=== PATIENT | male | born 1970 | race Caucasian/White ===

== ENCOUNTER 2017-11-13 13:44 | Inpatient (IN) | payer OTHER ==
[~2017-11-13] VITALS: Ht 180.3 cm; Wt 62.1 kg
--- NOTE | 2017-11-13 14:23 | NUR ---
PRE-ASSESSMENT NOTE: PT WAS ASSESSED IN INTAKE OFFICE, PT IS IN STABLE CONDITION, PT'S LAST DRINK WAS YESTERDAY, PT VERBALIZES HE DRINKS 300-500 ML DAILY X 1 MONTH. APPEARS ANXIOUS AND RESTLESS. WITH DISHEVELED APPEARANCE. PT IS THE MAIN SOURCES OF INFORMATION AND IS MODERATELY WITHDRAWING AT THIS TIME.
[2017-11-13 14:30] VITALS: BP 130/82
--- NOTE | 2017-11-13 14:42 | NUR ---
ADMISSION NOTE ALLERGY-NKA STATUS-FULL CODE HEIGHT-5'11 WEIGHT-137LBS PCP- DR. Persaud last seen was 2 months ago [facility]-10 Patient is 46 year old male admitted at 1442 PM for supervised ETOH(VODKA) withdrawal. Patient is alert and oriented X4, full code, with NKA. On fall and seizure precaution, patient denies any history of seizure, denies SOB, chest pain. Upon arrival skin assessment done and skin noted intact. Patient reports history of anxiety, depression, and he is taking Seroquel and Zoloft. Per patient last used Seroquel last night 11/12/17 and Zoloft was 11/13/17. Patient is able to respond to questions, cooperative during the admission interview but patient has avoidant eye contact, anxious, agitated, worried, has dirty finger nails, and has an odor. Denies suicidal or homicidal ideation at this time. Patient states family history of alcohol use. Patient refused PNA vaccine. Patient reports for past two months " I was living in a hotel because my doesn't want to be around me since I keep drinking." Patient reports history of vasotomy. Patient reports that common withdrawal symptoms include ,anxiety, restless, N/V, shakes and tremors. Patient denies any history of overdose. Patient states that he has been seeking treatment because it is affecting his health. Pt reports he uses ETOH to cope with stress. Patient states he is going through a divorce due to his drinking and his gave him 6 months to get sober and the last 4 months were the trigger point that caused him to want to use. He states he has 2 months left to get sober and is highly motivated to gain sobriety. Patient states he was in [facility] treatment in August 2017, patient unable to recall the exact name of the treatment center; will cont to ask. Patient also reports in 2011 he was in [facility] detox in [place]. Patient states his longest period of sobriety was 1.5 years which was in 2011 to September 2013. Patient reported there is no specific trigger. Patient states that he is ready to focus on recovery and is open to 12 steps program. Substance use history per patient report: 1) ETOH(VODKA) - Patient reports last drink of Vodka was yesterday 11/12/17 PO 375ML. Patient states he has been drinking 300ml to 500ML daily for past 1 month. Patient reports he started using at age of 15. Patient also reports he was in able to change and stayed there for 30 days right after he discharge he relapses. Educated patient about plan of care including detox, group therapy and discharge planning. Encourage patient to be open honest and verbalized support for patient in his recovery. Encourage patient to notify staff with any concerns. Patient was oriented to unit, room and call lights, oriented to unit routines and activity groups, and provided with hygiene supplies. Patient has been educated about plan of care and case management, as well as unit protocols. Safety measures in place, side rails up x2 bed locked in low position, call light within reach. Will cont to monitor.
[2017-11-13] MEDS ORDERED: IBUPROFEN 600 MG TABLET PO PRN (14:45)
[2017-11-13] MEDS ORDERED: ONDANSETRON ODT 4 MG TAB.RAPDIS SL PRN (14:45)
[2017-11-13] MEDS ORDERED: LOPERAMIDE HCL 2 MG CAPSULE PO PRN ×2 (14:45)
[2017-11-13] MEDS ORDERED: LORAZEPAM 1 MG TABLET PO PRN ×2 (14:45)
[2017-11-13] MEDS ORDERED: diphenhydrAMINE 50 MG CAPSULE PO PRN (14:45)
[2017-11-13] MEDS ORDERED: MAGNESIUM HYDROXIDE 30 ML LIQUID UDC PO PRN (14:45)
[2017-11-13] MEDS ORDERED: MAG HYDROX/AL HYDROX/SIMETH 30 ML LIQUID UDC PO PRN (14:45)
[2017-11-13] MEDS ORDERED: ACETAMINOPHEN 325 MG TABLET PO PRN (14:45)
[2017-11-13] MEDS ORDERED: LORAZEPAM 2 MG/1 ML VIAL IM PRN (14:45)
[2017-11-13] MEDS ORDERED: THIAMINE HCL 200 MG/2 ML VIAL IM ONE (14:45)
[2017-11-13] MEDS ORDERED: 5 DAY TAPER VALIUM-SERENITY PROTOCOL PO PRN (14:45)
[2017-11-13] MEDS ORDERED: ONDANSETRON 4 MG/2 ML VIAL IM PRN (14:45)
[2017-11-13 15:14] LABS: *AMPHETAMINE, URINE NEGATIVE (NEGATIVE); *BARBITURATE, URINE NEGATIVE (NEGATIVE); *CANNABINOID, URINE NEGATIVE (NEGATIVE); *COCCAINE, URINE NEGATIVE (NEGATIVE); *OPIATE, URINE NEGATIVE (NEGATIVE); *PHENCYCLIDINE SCREEN,URINE NEGATIVE (NEGATIVE)
[2017-11-13 15:31] LABS: BASOPHILS % (AUTO) 0.4 % (0.0-2.0); EOSINOPHILS % (AUTO) 0.5 % (0.0-7.0); HEMATOCRIT 43.6 % (36.7-47.1); LYMPHOCYTES # (AUTO) 0.5 K/uL (20.0-40.0); LYMPHOCYTES % (AUTO) 9.8 % (20.5-51.5); MEAN CORPUSCULAR HGB CONC 34 g/dL (32.5-36.3); MEAN CORPUSCULAR VOLUME 93.3 fL (73.0-96.2); MONOCYTES # (AUTO) 0.5 K/uL (2.0-10.0); MONOCYTES % (AUTO) 9.7 % (0.0-11.0); NEUTROPHILS # (AUTO) 4.4 K/uL (1.8-8.9); NEUTROPHILS % (AUTO) 79.6 % (38.5-71.5); PLATELET COUNT (AUTO) 164 K/uL (152-348); RED BLOOD CELL COUNT(AUTO) 4.68 MIL/uL (4.06-5.63); WHITE BLOOD COUNT (AUTO) 5.6 K/uL (3.6-10.2)
[2017-11-13 15:41] LABS: ETHANOL < 3 MG/DL (0-0)
[2017-11-13 15:50] LABS: ALANINE AMINOTRANSFERASE 201 U/L (16-63); ALKALINE PHOSPHATASE 88 U/L (50-136); ASPARTATE AMINOTRANSFERASE 410 U/L (15-37); BILIRUBIN,TOTAL 0.9 mg/dL (0.2-1.0); CARBON DIOXIDE 32 mmol/L (21-32); CHLORIDE 93 mmol/L (98-107); CREATININE 1.3 mg/dL (0.6-1.3); GLUCOSE 146 mg/dL (74-106); MAGNESIUM 1.7 mg/dL (1.8-2.4); POTASSIUM 3.4 mmol/L (3.5-5.1); TOTAL PROTEIN, SERUM 7.2 g/dL (6.4-8.2); UREA NITROGEN, BLOOD 8 mg/dL (7-18)
[2017-11-13 16:00] VITALS: BP 134/95
--- NOTE | 2017-11-13 16:00 | NUR ---
CIWA ASSESSMENT Patient is alert labile facial expression, poor eye contact continues to exhibits s/s of withdrawal such as nausea, sweats, bilateral hand tremors, anxiety, agitation, restless, light headed, CIWA score noted 14. Will cont to monitor.
[2017-11-13] MEDS: DIAZEPAM 10 MG TABLET PO SCH ×2 (16:10→21:13)
[2017-11-13] MEDS ORDERED: NALT50TA PO (16:51)
[2017-11-13] MEDS ORDERED: ALBU18HF2 INH (16:51)
[2017-11-13] MEDS ORDERED: ASCO500W7 PO (16:51)
[2017-11-13] MEDS ORDERED: KETO15CR2 TP (16:51)
[2017-11-13] MEDS ORDERED: QUET50TA PO (16:51)
[2017-11-13] MEDS ORDERED: CHOL500062 PO (16:51)
[2017-11-13] MEDS ORDERED: MULT1TAB73 PO (16:51)
[2017-11-13] MEDS ORDERED: SERT50TA PO (16:51)
[2017-11-13] MEDS ORDERED: VITA-287 PO (16:51)
[2017-11-13] MEDS ORDERED: GABA-534 PO (16:51)
[2017-11-13] MEDS ORDERED: POTASSIUM CHLORIDE 20 MEQ TAB.PRT.SR PO ONE (18:15)
[2017-11-13] MEDS ORDERED: MAGNESIUM OXIDE 400 MG TABLET PO ONE (18:15)
--- NOTE | 2017-11-13 18:29 | NUR ---
POTASSIUM AND MAGNESIUM REPLACED Patient labs results came and noted with Potassium 3.4L and Magnesium 1.7L. MD notified. New order to give K-DUR 20MG PO and Mag-OX 800mg PO medications were given as ordered, patient tolerated well.
--- NOTE | 2017-11-13 19:17 | NUR ---
END OF SHIFT NOTE Gave report to night nurse 46 year old male admitted for ETOH withdrawal and patient started on Valium taper first scheduled dose was given at 1600 CIWA score was 14. Patient reported PMH of anxiety, depression and taking Seroquel 50mg PO and Zoloft 150 PO daily. Patient presented with anxiety, agitation, restless, diaphoresis, light headed. Patient is currently very restless and wanted to rest at this time. Encouraged PO fluids as tolerated. All safety measures in place, call light within reach. Patient endorse to night nurse in stable condition.
--- NOTE | 2017-11-13 19:30 | NUR ---
START OF SHIFT PT IS A 46 MALE ADMITTED TODAY FOR ETOH WITHDRAWAL.PT HAS BEEN STARTED ON A 5 DAY VALIUM TAPER AND IS TOLERATING WELL.PT A/O X 4, RECEIVED LYING IN BED,C/O FEELING ANXIOUS AND RESTLESS WITH GENERALIZED BODY ACHE. PO FLUIDS ENCOURAGED.LAST CIWA=14. ALL SAFETY MEASURES ARE IN PLACE,SIDE RAILS UPX2 , BED IS IN LOWEST POSITION. CALL LIGHT WITHIN REACH. WILL CONTINUE TO MONITOR.
[2017-11-13 20:00] VITALS: BP 130/80
[2017-11-13] MEDS ORDERED: QUETIAPINE FUMARATE 25 MG TABLET PO ONE (21:30)
--- NOTE | 2017-11-13 21:30 | NUR ---
COMMUNICATION / ONE TIME ORDER. PT STATED THAT HE TAKES SEROQUEL 50 MG TABLET EVERY NIGHT TO HELP HIM SLEEP.DR VILLALOBOS NOTIFIED.ONE TIME ORDER OF SEROQUEL 50 MG PO NOTED AND CARRIED OUT.
--- NOTE | 2017-11-13 21:47 | NUR ---
PRN SEROQUEL GIVEN ORDERED FOR C/O INSOMNIA.WILL MONITOR FOR EFFECTIVENESS.
--- NOTE | 2017-11-13 22:45 | NUR ---
PRN REASSESSMENT. PRN SEROQUEL IS EFFECTIVE.PT IS RESTING IN BED WITH EYES CLOSED.BREATHING IS EVEN AND NON LABORED.NO S/S OF DISTRESS NOTED.WILL CONTINUE TO MONITOR.
[2017-11-14] VITALS: BP 117/79
[2017-11-14 04:00] VITALS: BP 112/76
--- NOTE | 2017-11-14 04:00 | NUR ---
CIWA DEFERRED PT IS RESTING IN BED WITH EYES CLOSED.BREATHING IS EVEN AND NON LABORED.V/S ARE STABLE.NO S/S OF DISTRESS NOTED.CIWA DEFERRED D/T PT BEING ASLEEP.WILL CONTINUE TO MONITOR.
--- NOTE | 2017-11-14 06:45 | NUR ---
END OF SHIFT PT IS A 46 MALE ADMITTED TODAY FOR ETOH WITHDRAWAL.PT CONTINUES ON A 5 DAY VALIUM TAPER AND IS TOLERATING WELL.PT IS A/O X 4, RECEIVED ONE TIME ORDER OF SEROQUEL 50 MG PO X 1 AND IT WAS EFFECTIVE.PT SLEPT 8 HRS,FLUID INTAKE WAS 1355 MLS,VOIDED X 2 .PO FLUIDS ENCOURAGED.LAST CIWA=7 AT MID NIGHT. ALL SAFETY MEASURES ARE IN PLACE,SIDE RAILS UPX2 , BED IS IN LOWEST POSITION. CALL LIGHT WITHIN REACH. WILL CONTINUE TO MONITOR.
[2017-11-14 08:00] VITALS: BP 120/87
--- NOTE | 2017-11-14 08:00 | NUR ---
CIWA ASSESSMENT Patient appears suspicious, labile facial expression, unkempt room, dirty finger nails and continues to exhibit s/s of withdrawal such as bilateral hand tremors, sweats, chills, stuffy nose, difficulty sitting still, yawning, anxiety, restless, agitation, light headed, CIWA score -13. Will cont to monitor.
--- NOTE | 2017-11-14 08:00 | NUR ---
START OF SHIFT NOTE Received report from night nurse 46 year old male admitted for ETOH withdrawal. Patient continues with his Valium taper tolerating well. Per endorsement patient received PRN Seroquel effective per night nurse, last CIWA 7, slept for 8 hours. Received patient alert awake oriented x4, bilateral hand tremors noted, sweats, chills, anxious, restless, unkempt room, sad facial expression, Skin intact warm and dry to touch. Educated patient with plan of care and medication regimen with good verbal understanding. All safety measures in place,call light within reach. Will continues to monitor.
[2017-11-14] MEDS: THIAMINE HCL 100 MG TABLET PO SCH (08:24)
[2017-11-14] MEDS: MULTIVITAMINS,THERAPEUTIC TABLET PO SCH (08:24)
[2017-11-14] MEDS: DIAZEPAM 10 MG TABLET PO SCH ×3 (08:24→21:31)
[2017-11-14] MEDS: FOLIC ACID 1 MG TABLET PO SCH (08:24)
[2017-11-14] MEDS ORDERED: TUBERCULIN,PURIF.PROT.DERIV. 5 TU/0.1 ML TEST ID ONE (09:00)
[2017-11-14] MEDS: SERTRALINE HCL 50 MG TABLET PO SCH (10:12)
[2017-11-14 12:00] VITALS: BP 111/86
[2017-11-14] MEDS ORDERED: KETOCONAZOLE 2% CREAM 30 GM TUBE TP SCH (12:00)
[2017-11-14] MEDS ORDERED: Medication Not On Formulary EA (Multivitamins (Multivitamin) 1 TAB) PO SCH (12:00)
[2017-11-14] MEDS ORDERED: ALBUTEROL SULFATE 8 GM HFA.AER.AD INH PRN (12:00)
--- NOTE | 2017-11-14 12:00 | NUR ---
CIWA ASSESSMENT Patient appears very tired, labile facial expression, dirty finger nails and continues to exhibit s/s of withdrawal such as bilateral hand tremors, numbness on bilateral hands sweats, chills, anxiety, restless, agitation, light headed, CIWA score -15. Will cont to monitor.
[2017-11-14] MEDS ORDERED: ALBUTEROL SULFATE 2.5 MG/3 ML NEBU NEB PRN (12:15)
[2017-11-14] MEDS: GABAPENTIN 300 MG CAPSULE PO SCH ×2 (13:11→16:45)
[2017-11-14 16:00] VITALS: BP 114/83
--- NOTE | 2017-11-14 16:00 | NUR ---
CIWA ASSESSMENT Patient is alert oriented, and continues to exhibit s/s of withdrawal such as bilateral hand tremors, numbness on bilateral hands sweats, and patient reported increased in anxiety, restless, agitation, light headed, CIWA score -16. Will cont to monitor.
[2017-11-14 16:43] LABS: BILIRUBIN,TOTAL 0.5 mg/dL (0.2-1.0); CREATININE 1.1 mg/dL (0.6-1.3); POTASSIUM 3.3 mmol/L (3.5-5.1); TOTAL PROTEIN, SERUM 6.1 g/dL (6.4-8.2)
--- NOTE | 2017-11-14 19:06 | NUR ---
END OF SHIFT NOTE Gave report to night nurse, 46 year old male admitted for ETOH withdrawal. Patient continues with Valium taper tolerating well. Patient presented with anxiety, agitation, restless, light headed, numbness on bilateral hands, sweats, bilateral hand tremors. Patient was given scheduled medications. Patient rested in his room most of the shift, encourage patient to attend groups activities to learn new coping skills, patient verbalized understanding. Encourage PO fluids as tolerated. Patient was seen by psychiatric with new order to give Zoloft 50mg PO medication was administered as ordered patient tolerated well. All safety measures in place, call light within reach. Patient endorse to night nurse in stable condition.
--- NOTE | 2017-11-14 19:40 | NUR ---
Start of Shift Notes Received a 46 y/o male px, admitted for medically supervised withdrawal from ETOH. Px was placed on 5 day Valium taper started on 11/13/2017. Px is tolerating it. Last reported CIWA by AM shift nurse at 1600 is 16. During the rounds at 1940, Px appears disheveled, unkempt, unshaven, odorous with dirty finger nails. Px is withdrawn. Px has good eye contact. Px stated My anxiety is 2/10. I see double vision on the TV but I am wearing my contact lenses. It bothers me a little. It started 2 days ago. Bilateral hand tremors noted. Bed on lowest position, side rails up x1 on the left side, and call light within reach. Well continue to monitor.
[2017-11-14 20:00] VITALS: BP 118/82
--- NOTE | 2017-11-14 20:00 | NUR ---
CIWA 14 Px appears anxious, withdrawn, with good eye contact. Bilateral hand tremors noted. He has Visual hallucinations that started 2 days ago. H/A is absent but has sweats at night.
[2017-11-14] MEDS ORDERED: POTASSIUM CHLORIDE 20 MEQ TAB.PRT.SR PO ONE (21:00)
[2017-11-14] MEDS: QUETIAPINE FUMARATE 25 MG TABLET PO SCH (21:31)
[2017-11-15] VITALS: BP 111/77
--- NOTE | 2017-11-15 | NUR ---
CIWA deferred CIWA deferred due to the px is asleep, to assess if the px is awake per doctor's order. We'll continue to monitor.
[2017-11-15 04:00] VITALS: BP 116/70
--- NOTE | 2017-11-15 04:00 | NUR ---
CIWA deferred CIWA deferred due to the px is asleep, to assess if the px is awake per doctor's order. We'll continue to monitor.
--- NOTE | 2017-11-15 07:10 | NUR ---
End of Shift Notes During the shift, px didnt received any PRN medication. Px oral intake is 1200 ml, voided 3x, without BM. Px slept for 8 hours. At 0630, px is asleep on bed in left side lying position. Last CIWA 14. Bed on lowest position, side rails up x2, and call light within reach. Well continue to monitor. Px endorsed to AM shift nurse.
[2017-11-15 08:00] VITALS: BP 102/71
--- NOTE | 2017-11-15 08:20 | NUR ---
START OF SHIFT: Received Pt A/O X 4. He presents with blunted affect and depressed mood. He denies S/I and H/I. He is tremulous with flushed complexion. He is disheveled and his finger nails are dirty. He reports anxiety , sensitivity to light with occasional blurred vision and restlessness. Pt states he stays in his room and does not attend groups.CIWA 12. Valium taper in progress to manage s/s of w/d. Encouraged group attendance to improve coping skills and prevent relapse. Encouraged increased fluids to promote wellness. Encouraged a shower for good hygiene. Will continue to monitor and manage s/s of w/d.
[2017-11-15] MEDS: FOLIC ACID 1 MG TABLET PO SCH (09:13)
[2017-11-15] MEDS: GABAPENTIN 300 MG CAPSULE PO SCH ×3 (09:13→16:18)
[2017-11-15] MEDS: THIAMINE HCL 100 MG TABLET PO SCH (09:14)
[2017-11-15] MEDS: MULTIVITAMINS,THERAPEUTIC TABLET PO SCH (09:14)
[2017-11-15] MEDS: DIAZEPAM 5 MG TABLET PO SCH ×4 (09:14→21:36)
[2017-11-15] MEDS: SERTRALINE HCL 50 MG TABLET PO SCH (09:14)
[2017-11-15 12:00] VITALS: BP 113/80
[2017-11-15 16:00] VITALS: BP 111/80
--- NOTE | 2017-11-15 18:47 | NUR ---
END OF SHIFT: Pt continues on Valium taper to manage s/s of w/d which include tremors,sweats,anxiety and restlessness. Last CIWA 13. He is disheveled and odorous. He isolated in bed all of shift and did not attend groups. He states he wanted to catch up on his sleep. Will pass shift report to oncoming night nurse.
[2017-11-15 20:00] VITALS: BP 111/77
--- NOTE | 2017-11-15 20:00 | NUR ---
322 Start of Shift Notes Received a 46 y/o male px, admitted for medically supervised withdrawal from ETOH. Px was placed on 5 day Valium taper started on 11/13/2017. Px is tolerating it. Last reported CIWA by AM shift nurse at 1600 is 13. During the rounds at 2000, Px still appears disheveled, unkempt, unshaven, odorous with dirty finger nails. Px is withdrawn. Px has good eye contact. Px stated that his anxiety is mild and he has mild H/A. Bilateral hand tremors noted. Px was encouraged to take a shower. Px replied that he will take it tomorrow. Bed on lowest position, side rails up x1 on the left side, and call light within reach. Well continue to monitor.
--- NOTE | 2017-11-15 20:00 | NUR ---
CIWA 12 Px appears anxious, withdrawn, with good eye contact. Bilateral hand tremors noted. He has Visual hallucinations that started 3 days ago. H/A is mild.
[2017-11-15] MEDS ORDERED: SERTRALINE HCL 100 MG TABLET PO SCH (21:00)
[2017-11-15] MEDS: QUETIAPINE FUMARATE 25 MG TABLET PO SCH (21:37)
--- NOTE | 2017-11-15 21:37 | NUR ---
PRN Tylenol Px received Tylenol 325 mg/tab, 2 tabs given PO for H/A of 07/08. Will reassess after an hour
--- NOTE | 2017-11-15 22:37 | NUR ---
CIWA 11 Reassessment of CIWA after Valium 5 mg PO. Px still appears anxious, withdrawn, with good eye contact. Bilateral hand tremors noted. He has Visual hallucinations that started 3 days ago.
--- NOTE | 2017-11-15 22:40 | NUR ---
Reassessment of H/A Px stated "My H/A is gone."
[2017-11-16] VITALS: BP 115/78
--- NOTE | 2017-11-16 | NUR ---
CIWA deferred CIWA deferred due to the px is asleep, to assess if the px is awake per doctor's order. We'll continue to monitor.
[2017-11-16 04:00] VITALS: BP 112/77
--- NOTE | 2017-11-16 04:00 | NUR ---
CIWA deferred CIWA deferred due to the px is asleep, to assess if the px is awake per doctor's order. We'll continue to monitor.
--- NOTE | 2017-11-16 07:10 | NUR ---
End of Shift Notes During the shift at 2137, px received Tylenol 650 mg PO for H/A. It was effective. Px oral intake 1 L, voided x2, without BM. Px slept for 8 hours. At 0630, px is asleep on bed in right side lying position. Last CIWA 11. Bed on lowest position, side rails up x1 on the left side, and call light within reach. Well continue to monitor. Px endorsed to AM shift nurse.
[2017-11-16 08:00] VITALS: BP 106/77
--- NOTE | 2017-11-16 08:18 | NUR ---
START OF SHIFT: Received Pt A/O X 4. He presents with blunted affect and depressed mood. He denies S/I and H/I. Fine tremors noted.His complexion is flushed. He is disheveled with dirty fingernails. He is odorous. He reports anxiety , sensitivity to light and restlessness. Pt states he stays in his room and does not attend groups.CIWA 12. Valium taper in progress to manage s/s of w/d. Encouraged group attendance to improve coping skills and prevent relapse. Encouraged increased fluids to promote wellness. Strongly encouraged a shower for good hygiene. Will continue to monitor and manage s/s of w/d.
[2017-11-16] MEDS ORDERED: SERTRALINE HCL 50 MG TABLET PO SCH (09:00)
[2017-11-16] MEDS: MULTIVITAMINS,THERAPEUTIC TABLET PO SCH (09:07)
[2017-11-16] MEDS: GABAPENTIN 300 MG CAPSULE PO SCH ×3 (09:07→16:49)
[2017-11-16] MEDS: THIAMINE HCL 100 MG TABLET PO SCH (09:07)
[2017-11-16] MEDS: FOLIC ACID 1 MG TABLET PO SCH (09:07)
[2017-11-16] MEDS: DIAZEPAM 5 MG TABLET PO SCH ×3 (09:08→21:11)
--- NOTE | 2017-11-16 09:56 | NUR ---
Pt showered. Linens changed.
--- NOTE | 2017-11-16 11:05 | NUR ---
Endorsed Pt to staff nurse. All pertinent information discussed for continuity of care.
[2017-11-16 12:00] VITALS: BP 109/76
--- NOTE | 2017-11-16 12:00 | NUR ---
CIWA Assessment CIWA of 11. Pt. presents with anxiety, restlessness, and fine hand tremors. Pt. medication compliant at this time. No behavior issues.
[2017-11-16] MEDS: SERTRALINE HCL 100 MG TABLET PO SCH (14:31)
[2017-11-16 16:00] VITALS: BP 126/84
--- NOTE | 2017-11-16 16:00 | NUR ---
CIWA Assessment CIWA of 11. Pt. presents with anxiety, restlessness, and fine hand tremors. Pt. medication compliant at this time. No behavior issues. Will continue to monitor pt.'s behavior for safety.
--- NOTE | 2017-11-16 19:23 | NUR ---
End of Shift Note Pt. is a 46 y/o male admitted for the medically managed withdrawal from ETOH. Pt. was placed on a 5 day valium taper to managed withdrawal symptoms. Pt. compliant with treatment plan and medication administration. During shift pt. was disheveled, malodorous (even after showering) isolative and withdrawn preferring to stay in his room. Pt. was prompted to shower and maintained a hygienic person and personal space. Pt. continually presented with anxiety, restlessness and fine hand tremors during shift. No PRN's given during shift. Last CIWA of 11 at 1600. Safety measures in place. Pt.'s care endorse to oncoming shift.
--- NOTE | 2017-11-16 19:30 | NUR ---
Start of Shift Pt admitted 11/13/17 for medically managed withdrawal from ETOH. Pt is listed as a full code with NKAs and on a regular diet. Pt assessed in room, presents as depressed/sad/worried, anxious, hyperactive and fidgety. Pt cooperative, oriented x 4, denies any pain or H/A, N/V/D, Stomach cramping present. Pt is obviously moist, hands tremulous, gait hesitant but steady. Pt also hypervigilant and restless, but cooperative, oriented x 4. Pt Full safety measures remain in place, including fall/seizure. Will continue to monitor for duration of shift and promptly attend to all s/sxs distress or w/d.
[2017-11-16 20:00] VITALS: BP 124/89
--- NOTE | 2017-11-16 20:00 | NUR ---
CIWA 2000 CIWA score of 11, aeb stomach cramping, tremors, sweats and diaphoresis, anxiety and agitation/restlessness/hypervigilance.
[2017-11-16] MEDS: QUETIAPINE FUMARATE 25 MG TABLET PO SCH (21:11)
[2017-11-17] VITALS: BP 107/67
--- NOTE | 2017-11-17 | NUR ---
Midnight rounds 0000 VS's obtained, CIWA deferred due to pt somnalance. RR 16, BP 107/67, SaO2 96%. Will continue to monitor and promptly attend to all s/sx's distress or w/d.
[2017-11-17 04:00] VITALS: BP 94/59
--- NOTE | 2017-11-17 04:00 | NUR ---
0400 CIWA VS's obtained/stable. CIWA 7, AEB hand tremors, sweats and diaphonesis, anxiety and agitation/restlessness and hypervigilance.
--- NOTE | 2017-11-17 07:43 | NUR ---
End of Shift Endorsement given to day nurse. Pt admitted 11/13/17 for medically managed withdrawal from ETOH starting day 5 of a 5 day Valium taper today. Pt receiveived no PRNs for shift, with Seroquel and Valium being evening meds. Pt with flat affect, worried/depressed with loose thoughts, cooperative, able to perform ADLs, but low self-esteem persists (Hx of 2 prior Txs, last 4 months ago). VSs stable except HR tachy( consistent with stay) coming down to 100 with 0400 VSs. Last CIWA 7 at 0400. Pt slept for 7 hours with 1092 mls intake and 2 voids . Full safety measures remain in place, with bed locked and in lowest position, siderails up x 2, call mireles within reach and frequent rounding.
--- NOTE | 2017-11-17 07:51 | NUR ---
Start of Shift Notes: Received patient in his room. Alert and oriented x 4. Denies S/I or H/I noted. No AV hallucinations noted. Appears disheveled, unshaven, red eyes, tremulous and diaphoretic. He is noted to be anxious to go smoke. He states "I need to go smoke, I only have half a pack of cigarettes left." Upon looking at patient's bedside. He was seen to have 2 half a pack of cigarettes. He was educated on the smoking policies with help. Patient is a 46 year old male admitted for ETOH withdrawal who was placed on a 5-day Valium taper as ordered. No adverse reactions noted. Educated patient on his current plan of care for the day and his medication regimen. Encouraged oral fluid intake and encouraged group participation to learn new skills to prevent relapse. Per night report, patient slept for 7 hours. Last CIWA 7 at 0400. All needs met and attended. Will continue to monitor closely.
[2017-11-17 08:00] VITALS: BP 105/77
[2017-11-17] MEDS: FOLIC ACID 1 MG TABLET PO SCH (08:17)
[2017-11-17] MEDS: MULTIVITAMINS,THERAPEUTIC TABLET PO SCH (08:17)
[2017-11-17] MEDS: SERTRALINE HCL 100 MG TABLET PO SCH (08:17)
[2017-11-17] MEDS: GABAPENTIN 300 MG CAPSULE PO SCH ×3 (08:17→16:11)
[2017-11-17] MEDS: DIAZEPAM 5 MG TABLET PO SCH ×2 (08:17→21:19)
[2017-11-17] MEDS: THIAMINE HCL 100 MG TABLET PO SCH (08:17)
--- NOTE | 2017-11-17 08:47 | NUR ---
CIWA Assessment: CIWA 16, patient presented with gross tremors, diaphoresis, anxiety, agitation, irritability and hypervigilance. Redirection provided. Offered PRNs. Patient states "I need to learn how to cope with this." Notified MD of patient's score. Will continue to monitor and offer oral fluids.
[2017-11-17 12:00] VITALS: BP 129/81
--- NOTE | 2017-11-17 12:29 | NUR ---
CIWA Assessment: CIWA 1, patient continues to exhibit s/s of withdrawal related to ETOH m/b gross tremors, intermittent perspiration, anxiety, agitation, irritability and hypervigilance. Redirection provided. Will continue to monitor and offer oral fluids.
--- NOTE | 2017-11-17 12:59 | NUR ---
MD Communication: HR Patient's HR ranges from 100 to 105 while sitting on bed. Notified Dr. Cruz who is on the unit at this time with NNO made.
[2017-11-17 16:00] VITALS: BP 130/87
--- NOTE | 2017-11-17 16:20 | NUR ---
CIWA Assessment: CIWA 12, patient continues to present with anxiety, agitation, diaphoresis and tremors. He is seen pacing along the hallway waiting for a cigarette. However, he was noted to participate in group. He verbalizes "Group is helping me with my anxiety a bit." Will continue to monitor.
--- NOTE | 2017-11-17 19:05 | NUR ---
START OF SHIFT NOTE: Endorsed patient is a 46 year old male admitted on for Alcohol (Vodka) withdrawal, continues 4 day Valium taper, which tolerated well. Withdrawal symptoms closely monitored. Patient is alert and oriented x4, cooperative, ambulatory with steady gait. His speech is soft and clear. The patient reports NKA, Regular Diet, is on Fall and Seizures Precautions. Patient denies history of seizures. The patient appears with anxious mood and labile affect. Reassuring provided. Encouraged to express his feelings. Patient noted disheveled, unshaven, unkempt, and with uncombed hair. Educated in safety and hygiene care. Encouraged to independently perform hygiene care. The most recent CIWA=12 at 1600, per outgoing day shift nurse report: The patient presented with moderate withdrawal symptoms of anxiety, agitation, nervousness, irritability, sweating, abdominal cramps, nausea, restlessness, tremors, and fatigue. Respirations are even and unlabored. Patient's tachycardia with HR = 104 at 0800, HR =104 at 1200, and OW=018 at 1600. Doctor Krishna Cruz aware. Patient denies SOB, chest pain, and cough. Skin is intact, warm, and dry to touch. The patient tolerated well. The patient remains compliant with treatment, medications, and diet regime. No PRN Medications administrated during day shift. Encouraged to fluids intake as tolerated. Safe and calm environment with minimized noises was provided. All needs met. Safety measures in place: Call light within reach, bed is locked in lowest position, and padded bed rails up bilaterally. Patient endorsed by outgoing day shift nurse. Will continue to monitor closely.
--- NOTE | 2017-11-17 19:05 | NUR ---
End of Shift Notes: Patient continues to be on 5-day Valium taper as ordered to manage symptoms related to ETOH withdrawal. VS monitored closely. Noted with tachycardia during the day. MD aware. Discouraged caffeine intake during the day. Withdrawal symptoms were closely monitored. Initial CIWA 16, patient presented with gross tremors, diaphoresis, anxiety, agitation, irritability, and hyper vigilance. Last CIWA 12 at 1600. Patient verbalizes that Valium has been effective in reducing his withdrawal symptoms. He was able to participate in group and activities despite his withdrawal symptoms. Compliant with care and treatment. All needs met and attended. Will continue to monitor closely.
[2017-11-17 20:00] VITALS: BP 121/74
--- NOTE | 2017-11-17 20:00 | NUR ---
CIWA ASSESSMENT: CIWA=13 at 2000: Patient presented with moderate withdrawal symptoms of anxiety, agitation, nervousness, irritability, flushed face, sweating, tremors, yawning, restlessness, and fatigue. Safe and calm environment with minimized noises was provided. All needs met. Safety measures in place: Call light within reach, bed is locked in lowest position, and padded bed rails up x2.
[2017-11-17] MEDS: QUETIAPINE FUMARATE 25 MG TABLET PO SCH (21:19)
[2017-11-18] VITALS: BP 106/62
--- NOTE | 2017-11-18 | NUR ---
CIWA ASSESSMENT: CIWA=11 at 0000: Patient noted with anxiety, agitation, nervousness, irritability, flushed face, sweating, tremors, yawning, restlessness, and fatigue. Safe and calm environment with minimized noises was provided. All needs met. Safety measures in place: Call light within reach, bed is locked in lowest position, and padded bed rails up x2.
[2017-11-18 04:00] VITALS: BP 101/62
--- NOTE | 2017-11-18 04:00 | NUR ---
CIWA ASSESSMENT: CIWA=12 at 0400: Patient presented with anxiety, agitation, depression, nervousness, irritability, tremors, sweating, nasal congestion, fatigue, and restlessness. The patient reports, "Already sleeping much better, anxiety still there, but way down". Safe and calm environment with minimized noises was provided. All needs met. Safety measures in place: Call light within reach, bed is locked in lowest position, and padded bed rails up x2.
--- NOTE | 2017-11-18 06:59 | NUR ---
END OF SHIFT NOTE Presented patient is a 46 old male continues 5 day Valium taper ordered for Alcohol (Vodka) withdrawal. Withdrawal symptoms closely monitored. Patient remains compliant with medications, treatment, and diet regimen. Patient is alert and oriented x4, ambulatory with gait. His speech is soft and clear. The patient reports NKA, Regular Diet, is on Fall and Seizures Precautions. Patient denies history of seizures. The patient denies SI/HI. The patient is noted easy overwhelmed, with anxious mood and flat affect. Relaxation Techniques: Deep breathing exercises, guided imagery, and visualization. CIWA ASSESSMENTS: 1. CIWA=13 at 2000: Patient presented with moderate withdrawal symptoms of anxiety, agitation, nervousness, irritability, flushed face, sweating, tremors, yawning, restlessness, and fatigue. 2. CIWA=11 at 0000: Patient noted with anxiety, agitation, nervousness, irritability, flushed face, sweating, tremors, yawning, restlessness, and fatigue. The patient said that "medications alleviated my withdrawal symptoms". 3. CIWA=12 at 0400: Patient presented with anxiety, agitation, depression, nervousness, irritability, tremors, sweating, nasal congestion, fatigue, and restlessness. Patient reports, "Already sleeping much better, anxiety still there, but way down". Skin remains intact, warm, and dry to touch. No PRN medications administrated. Patient slept for 8 hours, intake 1,750 ml, voided x3. All needs met. Safety measures in the place by hospital policy: Call light within reach, bed in the lowest position and locked, padded rails up x2. Patient endorsed to day shift nurse in stable condition, report given.
--- NOTE | 2017-11-18 07:30 | NUR ---
START OF SHIFT Rcvd endorse from ongoing nurse, client is in room, a/o x 4, he presents with anxious mood, flat affect, tremors, clammy skin, client startles easily, difficulty concentrating, and avoids eye contact. Client appears disheveled and unshaven, his room is noted with scattered clothes around the floor, primary nurse cleaned area and encourage client to keep area clean of clutter to promote safety, client verbalized understanding. Client reports feeling tired, due to inability to sleep, headache, nausea, restless legs, and shaking. Encourage client to attend group therapy to learn skills to maintain sober. Client completed 5 day Valium taper. Last CIWA 12 @ 0400. Client slept 8 hrs. Seizure precautions in place. Call light within reach.
[2017-11-18 08:00] VITALS: BP 98/55
--- NOTE | 2017-11-18 09:00 | NUR ---
CIWA 9 Client presents with anxiety, depressed mood, tremors felt not observed, pins and needle feelings. Gabapentin 300mg PO, Zoloft 100mg PO administered, will continue to monitor. Call light within reach.
[2017-11-18] MEDS: GABAPENTIN 300 MG CAPSULE PO SCH ×3 (09:01→17:09)
[2017-11-18] MEDS: SERTRALINE HCL 100 MG TABLET PO SCH (09:01)
[2017-11-18] MEDS: FOLIC ACID 1 MG TABLET PO SCH (09:01)
[2017-11-18] MEDS: MULTIVITAMINS,THERAPEUTIC TABLET PO SCH (09:01)
[2017-11-18] MEDS: THIAMINE HCL 100 MG TABLET PO SCH (09:02)
--- NOTE | 2017-11-18 12:20 | NUR ---
CIWA 8 Client presents with anxious mood, mb by increase P 94, tremors felt not observed, pins and needle feelings. Gabapentin 300mg PO administered, will continue to monitor.
[2017-11-18 12:55] VITALS: BP_SYST 113; BP_SYST 114; BP_DIAS 64; BP_DIAS 74
[2017-11-18 16:36] VITALS: BP 124/85
[2017-11-18] MEDS: HYDROXYZINE PAMOATE 25 MG CAPSULE PO PRN (17:09)
[2017-11-18] MEDS: CLONIDINE HCL 0.1 MG TABLET PO PRN (17:09)
--- NOTE | 2017-11-18 17:09 | NUR ---
CIWA 10 Client presents with anxiety, agitation, tremors felt not observed, restless legs, client tends to isolate in his room. Schedule Gabapentin 300mg PO, PRN Clonidine 0.1mg PO for agitation, and Vistaril 25mg PO for anxiety administered, will continue to monitor. Call light within reach.
--- NOTE | 2017-11-18 18:09 | NUR ---
Reassess PRN Clonidine 0.1mg, client continues to presents with agitation and anxiety. Encourage deep breathing techniques. Call light within reach.
--- NOTE | 2017-11-18 19:02 | NUR ---
END OF SHIFT Endorse client to incoming nurse, client is in room, a/o x 4, he continues to present with anxious mood, flat affect, tremors, abdominal cramps, clammy skin, restless legs, and fatigue. Client needs encouragement to attend with group therapy. PRN Clonidine 0.1mg PO for agitation, and Vistaril 25mg PO for anxiety. Client completed 5 day Valium taper. Last CIWA 10 @ 1700. Adequate PO fluid intake 3400mL, void x 5, stool x 1. Consumes 100% of meals. Seizure precautions in place. Call light within reach.
--- NOTE | 2017-11-18 19:30 | NUR ---
Start of Shift Endorsement received from day shift. Pt admitted 11/13/17 for medically managed withdrawal from ETOH. Pt remains listed as a full code with NKS's and on a regular diet. Pt completed 5 day Valium taper 11/17/17. Pt completed 5 day Valium taper on , appears depressed/worried, affect flat, restless, anxious, agitated, avoidant eye contact, oriented x4. Pt depressed about not transferring to rehab until Monday. Pt encouraged to look at positive aspects of detox/recovery and sobriety, look at long term care social worker goals Rm is unkempt with empty drink and food containers and clothing strewn about and on floor, Pt PM ADL's performed without prompting, pt encouraged to straighten room. Full safety precautions remain in place, including fall and seizure, frequent rounding. Will monitor pt for duration of shift, promptly attending to all s/sx's w/d or distress.
[2017-11-18 20:00] VITALS: BP 128/88
--- NOTE | 2017-11-18 20:00 | NUR ---
CIWA Score 10 amb diaphoresis, hand tremors, anxiety/restlessness/psychomotor agitation, depression, fatigue, resting HR 97.
[2017-11-18] MEDS: QUETIAPINE FUMARATE 25 MG TABLET PO SCH (20:29)
[2017-11-19] VITALS: BP 113/71
--- NOTE | 2017-11-19 | NUR ---
CIWA Score 8 amb diaphoresis/intermittent perspiration, hand tremors, depression, anxiety, restlessness, fatigue, nightmares/sense of panic, resting HR 105.
[2017-11-19 04:00] VITALS: BP 105/61
--- NOTE | 2017-11-19 04:00 | NUR ---
CIWA Score 8 amb diaphoresis/intermittent perspiration, hand tremors, depression, anxiety, restlessness, fatigue, somnalance, and resting HR 92.
--- NOTE | 2017-11-19 07:16 | NUR ---
End of Shift Endorsement landing scaler to [facility] day nurse. Pt admitted 11/13/17 for medically managed withdrawal from ETOH. Pt remains listed as a full code with NKA's and on a regular diet. Pt completed 5 day Valium taper on , Pt depressed about not transferring to rehab until Monday. Affect flat, irritable. Expression is sad/worried with avoidant eye contact, anxious and fidgety. Some moisture on brow. Pt reports main triggers and barriers as anxiety and enablers. Room remains unkempt with empty food and drink containers, clothes strewn about. Pt arousable and cooperative for midnight and 0400 VS's/CIWA scoring. Last CIWA 8 at 0400. There were no PRN's for shift, with pt obtaining 8 hours of sleep, with 500 mls intake and 1 void. Safety measures remain in place, including fall and seizure.
[2017-11-19 07:24] LABS: BILIRUBIN,TOTAL 0.2 mg/dL (0.2-1.0); CREATININE 1.1 mg/dL (0.6-1.3); POTASSIUM 3.9 mmol/L (3.5-5.1); TOTAL PROTEIN, SERUM 5.5 g/dL (6.4-8.2)
--- NOTE | 2017-11-19 07:40 | NUR ---
START OF SHIFT Rcvd endorse from ongoing nurse, client is in room, lying in bed, he is a/o x 4, he appears disheveled and unshaven, he presents with depressed mood, flat affect, tremors, clammy skin, and difficulty concentrating. Client reports feeling anxious, nauseous, tremors, sense of panic, and fatigue. PRN Clonidine 01.mg PO for anxiety. Encourage client to attend group therapy to learn skills to maintain sober. Client completed 5 day Valium taper. Last CIWA 8 @ 1999. Client slept 8 hrs. Seizure precautions in place. Call light within reach.
[2017-11-19 08:07] VITALS: BP 107/70
[2017-11-19] MEDS: THIAMINE HCL 100 MG TABLET PO SCH (08:54)
[2017-11-19] MEDS: GABAPENTIN 300 MG CAPSULE PO SCH ×3 (08:54→16:02)
[2017-11-19] MEDS: MULTIVITAMINS,THERAPEUTIC TABLET PO SCH (08:54)
[2017-11-19] MEDS: FOLIC ACID 1 MG TABLET PO SCH (08:54)
[2017-11-19] MEDS: SERTRALINE HCL 100 MG TABLET PO SCH (08:54)
--- NOTE | 2017-11-19 09:00 | NUR ---
CIWA 8 Client presents with nausea, clammy skin, anxious mood, flat affect, tremors felt not observed, pins and needle feelings. Gabapentin 300mg PO administered, will continue to monitor.
--- NOTE | 2017-11-19 10:00 | NUR ---
MD Notification Lab values Lipase 1130 AT 103 ALT 84 No new orders at this time. Client denies any pain or vomiting. Will continue to monitor.
[2017-11-19 12:30] VITALS: BP 107/76
--- NOTE | 2017-11-19 12:30 | NUR ---
CIWA 8 Client presents with depressed mood, anxiety, agitation, fine tremors. Non-pharmacologic interventions rendered. Call light within reach.
--- NOTE | 2017-11-19 13:59 | NUR ---
ordered am labs Amylase, Lipase, and Liver function test.
[2017-11-19 16:00] VITALS: BP 119/80
[2017-11-19] MEDS: CLONIDINE HCL 0.1 MG TABLET PO PRN (16:02)
[2017-11-19] MEDS: HYDROXYZINE PAMOATE 25 MG CAPSULE PO PRN (16:02)
--- NOTE | 2017-11-19 16:02 | NUR ---
CIWA 9 Client presents with anxiety, agitation, depressed mood, fine tremors, restless legs, and difficulty concentrating. Schedule gabapentin 300mg PO, PRN Clonidine 0.1mg PO for agitation, Vistaril 25mg PO for anxiety administered. Call light within reach.
--- NOTE | 2017-11-19 17:02 | NUR ---
Reassess PRN Clonidine 0.1mg, client continues to presents with agitation and anxiety. Encourage deep breathing techniques. Call light within reach.
--- NOTE | 2017-11-19 17:24 | NUR ---
Client's dad called to inquire on current client's status. Relevant information provided, no inquiries made at this moment. Dad requested to give a message to his son, that he is there for him, loves him, and will come and see him at the rehab center in two weeks. Client made aware of phone call and message from his dad.
--- NOTE | 2017-11-19 19:18 | NUR ---
END OF SHIFT Endorse client to incoming nurse, client is in room, a/o x 4, he continues to present with anxious mood, flat affect, tremors, restless legs, and fatigue. Client needs encouragement to attend with group therapy. PRN Clonidine 0.1mg PO for agitation, and Vistaril 25mg PO for anxiety. Client completed 5 day Valium taper. Last CIWA 8 @ 1600. Adequate PO fluid intake 2460mL, void x 6, stool x 2. Consumes 100% of meals. Seizure precautions in place. Call light within reach.
--- NOTE | 2017-11-19 19:30 | NUR ---
Start of Shift Endorsement received from day shift. Pt admitted 11/13/17 for medically managed withdrawal from ETOH. Pt remains listed as a full code with NKA's and on a regular diet. Pt completed 5 day Valium taper 11/17/17. Pt was to be d/c'd tomorrow but has been postponed 1 day to review abnormal lab results. Amylase, Lipase and LFT's to be drawn in am. Pt appears moist, with loose thoughts and somewhat flat affect. Per report, pt can become obsessive at times, verified by pt's father. Pt informed of additional day and inquires about elevated labs (lipase, AST, ALT), then says "Oh, thats not bad". Poor eye contact, depressed, anxious expression. Pt remains unshaven and appears older than stated age. Will continue to monitor pt for duration of shift, promptly attending to all s/sx's distress or w/d.
[2017-11-19 20:00] VITALS: BP 114/75
--- NOTE | 2017-11-19 20:00 | NUR ---
CIWA Score 9 amb diaphoresis/intermittent perspiration, hand tremors, depression, anxiety, restlessness, fatigue, resting HR 99.
[2017-11-19] MEDS: QUETIAPINE FUMARATE 25 MG TABLET PO SCH (20:54)
[2017-11-20] VITALS: BP 101/66
--- NOTE | 2017-11-20 | NUR ---
CIWA Score 9 amb diaphoresis/intermittent perspiration, hand tremors, depression, anxiety, restlessness, fatigue, resting HR 90.
[2017-11-20 04:00] VITALS: BP 113/73
--- NOTE | 2017-11-20 04:00 | NUR ---
CIWA Score 8 amb intermittent perspiration, hand tremors, depression, anxiety, restlessness, fatigue, hypervigilance, resting HR 95.
--- NOTE | 2017-11-20 07:40 | NUR ---
START OF SHIFT Pt is a 39 yr old male, AA&Ox4. Pt was admitted on 11/13/17 for ETOH withdrawal and has completed a 5 day Valium taper as ordered. Received report from maintenance supervisor 2nd shift nurse. No PRN's were given during the night. Pt slept fro 7 hrs. Last CIWA score was 8. Pt is currently in bed resting with respirations even and unlabored. Pt is c/o anxiety but is able to cope with anxiety level. Pt is noted with fine tremors on BUE. Skin is intact, warm and moist to touch. Safety precautions are noted. Call light is within reach. Will continue to monitor.
--- NOTE | 2017-11-20 07:42 | NUR ---
End of Shift Endorsement given to [facility] day nurse. Endorsement received from day shift. Pt admitted 11/13/17 for medically managed withdrawal from ETOH. Pt remains listed as a full code with NKA's and on a regular diet. Pt completed 5 day Valium taper 11/17/17. Pt was to be d/c'd today but has been postponed 1 day to review abnormal lab results. Amylase, Lipase and LFT's to be drawn in am. There were no acute incidences overnight. Pt slept for 7 hours, with 1047 mls intake and 2 voids. Obsessiveness noted by prior day nurse, verified with father, giving examples and hx of and noted by this nurse with pt's hypervigilance regarding abnormal labs, and apparent knowledge of expected lab values for said tests. HR decreasing, usually < 100.
[2017-11-20 08:00] VITALS: BP_SYST 119; BP_SYST 148; BP_DIAS 75; BP_DIAS 84
--- NOTE | 2017-11-20 08:00 | NUR ---
CIWA 8 Pt is noted with anxiety, agitation, sweats and fine tremors.
[2017-11-20 08:04] LABS: BILIRUBIN,DIRECT 0.1 mg/dL (0.0-0.2); BILIRUBIN,TOTAL 0.3 mg/dL (0.2-1.0); TOTAL PROTEIN, SERUM 5.7 g/dL (6.4-8.2)
[2017-11-20] MEDS: THIAMINE HCL 100 MG TABLET PO SCH (09:27)
[2017-11-20] MEDS: FOLIC ACID 1 MG TABLET PO SCH (09:27)
[2017-11-20] MEDS: SERTRALINE HCL 100 MG TABLET PO SCH (09:27)
[2017-11-20] MEDS: MULTIVITAMINS,THERAPEUTIC TABLET PO SCH (09:28)
[2017-11-20] MEDS: GABAPENTIN 300 MG CAPSULE PO SCH ×3 (09:28→17:24)
[2017-11-20 12:00] VITALS: BP 116/82
--- NOTE | 2017-11-20 12:00 | NUR ---
CIWA 8 Pt is noted with anxiety, agitation, sweats and fine tremors.
[2017-11-20 16:00] VITALS: BP 121/75
--- NOTE | 2017-11-20 16:00 | NUR ---
CIWA 7 Pt is noted with anxiety, agitation, sweats and fine tremors on BUE.
--- NOTE | 2017-11-20 19:10 | NUR ---
END OF SHIFT Pt is AA&Ox4. Pt was cooperative with medication regimen and plan of care. Pt was observed with anxiety, agitation, sweats, flat affect, and fine tremor on BUE. Skin is intact, warm and moist to touch. No PRN's were given during the day. Last CIWA score was 7 at 1600. Pt is to be discharged tomorrow on 11/21/17. Safety precautions observed. Endorsed to awake overnight monitor nurse to continue with care.
--- NOTE | 2017-11-20 19:30 | NUR ---
START OF SHIFT Pt is a 58 y/o male admitted on 11/19/17 for opiate withdrawal. Pt started a 5 day Subutex taper today, additional PRN Subutex administered for breakthrough S/S of withdrawal. PRNRobaxin, Tylenol, Motrin, Bentyl, Ativan 2 mg x 2, Vistaril, Zofran IM, Zofran odt, Reglan IV, Imodium x 2, and Clonidine adminsitered during day shift. Last COWS 26. Pt on IVF NS running at 125 ml/hr in left forearm with 22 gauge. Pt had multiple episodes of vomiting and diarrhea throughout day shift. Pt got EKG today, resulted with bradycardia. Chest x-ray done for cough and chest congestion, results were negative. Clonidine ineffective in reducing BP. Upon assessment pt presents with anxiety, lethargy, pale skin, falt affect, nausea, stomach cramps, restlessness, intermittent sweats, tremors, runny nose, teary eyes, elevated BP, diarrhea, body aches, unkempt room and is fidgety. Medications due. Safety measures in place. Call light within reach. Will continue to monitor. Addendum: 11/20/17 at 2338 by BRITTANY PABON RN WRONG PATIENT Correct start of shift: Pt is a 46 y/o male admitted on 11/13/17 for ETOH withdrawal. Pt finished a 5 day Valium taper and is scheduled to be d/c tomorrow. Last CIWA 7 and no PRNs adminsitered during day shift. Upon assessment pt presents with anxiety, restlessness, tremors, difficulty falling asleep, flat affect, disheveled appearance, unkempt room, poor eye contact, and slumped posture. Medications due. Safety measures in place. Call light within reach. Will continue to monitor.
[2017-11-20 20:00] VITALS: BP 124/77
--- NOTE | 2017-11-20 20:00 | NUR ---
COWS 19 Pt presents with anxiety, lethargy, pale skin, flat affect, nausea, stomach cramps, restlessness, intermittent sweats, tremors, runny nose, teary eyes, elevated BP, diarrhea, body aches, unkempt room and is fidgety. Addendum: 11/20/17 at 2338 by BRITTANY PABON RN WRONG PATIENT
--- NOTE | 2017-11-20 20:00 | NUR ---
CIWA 10 Pt presents with anxiety, restlessness, tremors, difficulty falling asleep, flat affect, disheveled appearance, unkempt room, poor eye contact, and slumped posture.
[2017-11-20] MEDS: HYDROXYZINE PAMOATE 25 MG CAPSULE PO PRN (20:38)
[2017-11-20] MEDS: QUETIAPINE FUMARATE 25 MG TABLET PO SCH (20:38)
--- NOTE | 2017-11-20 20:38 | NUR ---
PRN VISTARIL ADMINISTRATION Pt presents with anxiety, requests Vistaril. Safety measures in place. Call light within reach. Will continue to monitor.
--- NOTE | 2017-11-20 21:38 | NUR ---
PRN VISTARIL REASSESSMENT Pt reports improvement in anxiety, went for two smoke breaks in past hour. Safety measures in place. Call light within reach. Will continue to monitor.
--- NOTE | 2017-11-21 | NUR ---
CIWA DEFERRED AND VITALS REFUSED Pt laying in bed with eyes closed, CIWA deferred, to be assessed when pt is awake per orders. Vitals refused. Respirations even and unlabored. Safety measures in place. Call light within reach. Will continue to monitor.
[2017-11-21] MEDS ORDERED: HYDR-3895 PO (00:33)
[2017-11-21] MEDS ORDERED: SERT100T12 PO (00:33)
[2017-11-21] MEDS ORDERED: CLON0.1T14 PO (00:33)
--- NOTE | 2017-11-21 07:30 | NUR ---
END OF SHIFT Pt is a 46 y/o male admitted on 11/13/17 for ETOH withdrawal. Pt finished a 5 day Valium taper and is scheduled to be d/c today. Pt presented with anxiety, restlessness, tremors, difficulty falling asleep, flat affect, disheveled appearance, unkempt room, poor eye contact, and slumped posture. Scheduled medications and PRN Vistaril adminsitered, effective in S/S of withdrawal as verbalized by pt. Last CIWA 10. Pt slept 8 hours. Intake 1139 ml, void x 1, stool x 1. Safety measures in place. Call light within reach. Pts needs have been met. Endorsed to day shift nurse.
--- NOTE | 2017-11-21 07:30 | NUR ---
Start of Shift Computer Systems Administrator received report on 46 year old male admitted to [facility] on 11/13/17 for medical management of ETOH withdrawals. Pt endorses NKA, full code and regular diet. Pt endorses no PMH, PPH of anxiety and depression. Pt has completed a Valium taper in preparation for todays discharge. Pts last CIWA 10, per NOC report. Pt was administered Vistaril(anxiety) as PRN medication by NOC, per report. Computer Systems Administrator encounters pt in pts room with pt resting in bed. Pt is A/O x4 and makes his needs known. Linear thought process with clear speech pattern. Normal affect with congruent mood. Pt anxious about discharge, but hopeful for the future. Bed in low position with wheels locked and side rails up x2. Will continue to monitor, support and encourage according to plan of care.
[2017-11-21 08:41] VITALS: BP 107/70
[2017-11-21] MEDS: MULTIVITAMINS,THERAPEUTIC TABLET PO SCH (08:53)
[2017-11-21] MEDS: GABAPENTIN 300 MG CAPSULE PO SCH (08:54)
[2017-11-21] MEDS: THIAMINE HCL 100 MG TABLET PO SCH (08:54)
[2017-11-21] MEDS: FOLIC ACID 1 MG TABLET PO SCH (08:54)
[2017-11-21] MEDS: SERTRALINE HCL 100 MG TABLET PO SCH (08:54)
--- NOTE | 2017-11-21 09:43 | NUR ---
Discharge Pt educated on discharge educational material and information contained in discharge pack. Pt educated on medication regime including name, route, timing dose and indication. Pt provided with copies of all discharge material including reading educational material and labs. Pt had all personal belongings returned. Pt had home medication returned. Pt signed all discharge paperwork. Pt denies SI/HI or A/VH. Pt is A/O x4 and makes needs known. Pt s anxious about his discharge, but hopeful for the future and excited about his chance in the future. Pt is cooperative and polite with staff. Pt with a linear thought process and clear speech pattern. Pt escorted to waiting private car for transportation to [facility].
== END 2017-11-21 09:43 | disposition other institution (70) | DRG 895 ==
LOC: SRC 13:49
PROVIDERS: ADMIT Family Medicine Addiction Medicine; ATTEND Family Medicine Addiction Medicine
PROC: HZ2ZZZZ Detoxification Services for Substance Abuse Treatment (ICD-10-PCS; principal; 2017-11-13)
PROC: HZ41ZZZ Group Counseling for Substance Abuse Treatment, Behavioral (ICD-10-PCS; 2017-11-17)
DX: F10.230 Alcohol dependence with withdrawal, uncomplicated (principal); F33.2 Major depressive disorder, recurrent severe without psychotic features; Y90.0 Blood alcohol level of less than 20 mg/100 ml; F41.1 Generalized anxiety disorder; E87.6 Hypokalemia; E83.42 Hypomagnesemia; R74.0 Nonspecific elevation of levels of transaminase and lactic acid dehydrogenase [LDH]
CPT/HCPCS: 36415; 70030-TC; 80307; 83690; 83735; 85025; 86580; 86592; 86705; 86803; 87340; 87806; G0480; J3411